=== PATIENT | female | born 1950 | race Two or more races ===

== ENCOUNTER 2024-02-24 23:18 | Emergency (ER) | payer OTHER ==
[~2024-02-24] VITALS: Ht 165.1 cm; Wt 83.9 kg
[2024-02-25] MEDS ORDERED: PROMETHAZINE HCL 50 MG/ML AMPUL IM STA (00:54)
[2024-02-25] MEDS ORDERED: HYOSCYAMINE SULFATE 0.125 MG TAB.SUBL SL STA (00:54)
[2024-02-25] MEDS ORDERED: FAMOTIDINE/PF 20 MG IV PUSH STA (00:55)
[2024-02-25] MEDS ORDERED: LACTOBACILLUS ACIDOPHILUS 1 CAP CAP PO STA (00:56)
[2024-02-25] MEDS ORDERED: 0.9 % SODIUM CHLORIDE 1,000 ML IV ONE (01:00)
[2024-02-25] MEDS ORDERED: FAMOTIDINE/PF 20 MG/2 ML VIAL IV ONE (01:15)
[2024-02-25 01:28] LABS: HEMATOCRIT 39.9 % (36.0-45.00); HEMOGLOBIN 13.5 g/dL (12.0-15.00); MEAN CELL VOLUME 85.9 fL (80.00-100.00); MEAN CORPUSCULAR HEMOGLOBIN 29.1 pg (27.00-32.0); MEAN CORPUSCULAR HGB CONC 33.9 g/dl (32.0-36.0); RED BLOOD COUNT 4.65 M/uL (4.00-6.00); RED CELL DISTRIBUTION WIDTH 14.4 % (11.5-14.5)
[2024-02-25 01:31] LABS: PLATELET COUNT 139 K/uL (150-450)
[2024-02-25 01:42] LABS: ALBUMIN 3.4 gm/dL (3.4-5.0); BILIRUBIN TOTAL 0.29 mg/dL (0.3-1.2); CALCIUM 9.2 mg/dL (8.5-10.1); CREATININE SERUM 1.18 mg/dL (0.55-1.02); GFR 45.15; GLOBULINA 4.4 G/DL (2.4-3.5); POTASSIUM 4.32 mEq/L (3.5-5.1); TOTAL PROTEIN 7.8 gm/dL (6.4-8.2)
[2024-02-25 06:21] LABS: URINE APPEARANCE Clear; URINE BILIRRUBIN Negative (NEGATIVE); URINE BLOOD Trace; URINE COLOR Yellow; URINE GLUCOSE Negative (NEGATIVE); URINE KETONE Trace (NEGATIVE); URINE LEUKOCYTE Negative; URINE NITRATE Negative; URINE UROBILINOGEN 0.2 E.U./dl
[2024-02-25 06:23] LABS: URINE BACTERIA 119.6 uL (0.0-1933); URINE EPITHELIAL CELLS 11.7 uL (0.0-38.8); URINE RBC 5.1 uL (0.0-20.8); URINE WBC 12.2 uL (0.0-23.2)
[2024-02-25 06:26] LABS: URINE CAST 1.06 uL (0.0-1.40); URINE PROTEIN 100 (NEGATIVE)
[2024-02-25] MEDS ORDERED: PEPCID40 MG PO (07:49)
[2024-02-25] MEDS ORDERED: INTESTINEX680 M2 PO (07:49)
[2024-02-25] MEDS ORDERED: ZOFRAN8 MG PO (07:49)
== END 2024-02-25 08:00 ==
LOC: ER 23:19
PROVIDERS: General Practice
DX: K52.89 Other specified noninfective gastroenteritis and colitis (principal); Z86.16 Personal history of COVID-19; I10 Essential (primary) hypertension; E03.8 Other specified hypothyroidism; E86.0 Dehydration
CPT/HCPCS: 36415; 96365; 96366; 99282; J2250; J3490; J7030